=== PATIENT | male | born 1980 | race Caucasian/White ===

== ENCOUNTER 2018-01-31 22:26 | Emergency (ER) | payer OTHER ==
[~2018-01-31] VITALS: Ht 182.8 cm; Wt 142.9 kg
[~2018-01-31 22:26] MED LIST: ALLEGRA-D 12 HO1 TER PO; AMOXICILLIN500 M2 PO; AMOXICILLIN500 MG PO; MOTRIN800 MG PO; NKHM; PREDNICOT20 MG PO; ROBAXIN750 MG PO; TAMIFLU 75MG CA75 MG PO; TOBREX OPHTH S2.5 ML OPH; TRAMADOL HCL50 MG PO; ZITHROMAX250 MG PO; ZYRTEC10 M1 PO; ZYRTEC10 MG PO
[2018-01-31 23:29] LABS: BASO # 0.1 10*3/uL (0.0-0.1); BASO % 0.6 % (0.0-1.0); EOS # 0.4 10*3/uL (0.0-0.4); EOS % 3.1 % (1.0-4.0); HEMATOCRIT 43.2 % (42.0-52.0); HEMOGLOBIN 14.6 g/dl (14.0-18.0); LYMPH # 1.1 10*3/uL (1.3-4.4); LYMPH % 9.3 % (27.0-41.0); MEAN CELL VOLUME 86.9 fl (80.0-94.0); MEAN CORPUSCULAR HGB 29.4 pg (27.0-31.0); MEAN CORPUSCULAR HGB CONC 33.8 g/dl (33.0-37.0); MEAN PLATELET VOLUME 9.6 fl (9.6-12.3); MONO # 1.4 10*3/uL (0.1-1.0); MONO % 12.3 % (3.0-9.0); NEUT # 8.7 10*3/uL (2.3-7.9); NEUT % 73.8 % (47.0-73.0); PLATELET COUNT AUTOMATED 204 10*3/uL (130-400); RED BLOOD COUNT 4.97 10*6/uL (4.50-5.90); RED CELL DISTRI WIDTH 13.4 % (0-14.5); WHITE BLOOD COUNT 11.8 10*3/uL (4.8-10.8)
[2018-01-31 23:39] LABS: ACT PARTIAL THROMBO TIME 24.2 SECONDS (20.8-31.5); INTERNATIONAL NORM RATIO 0.9 (2.0-3.5)
[2018-01-31 23:46] LABS: ALBUMIN 3.3 gm/dl (3.1-4.5); ALKALINE PHOSPHATASE 110 U/L (45-117); BUN 9 mg/dl (7-24); CHLORIDE 105 mmol/L (98-107); CREATININE 0.93 mg/dL (0.70-1.30); LIPASE 130 U/L (73-393); POTASSIUM 3.7 mmol/L (3.5-5.1); SGOT/AST 23 IU/L (3-35); SGPT/ALT 38 U/L (12-78); SODIUM 137 mmol/L (136-145); TOTAL PROTEIN 7.2 gm/dL (6.4-8.2); TROPONIN I < 0.015 ng/ml (<0.045)
[2018-02-01] MEDS ORDERED: OMNICEF300 MG PO (01:00)
[2018-02-01] MEDS ORDERED: MEDROL DOSEPAK4 MG PO (01:00)
== END 2018-02-01 00:59 | disposition home or self-care (01) ==
LOC: ED 22:26
PROVIDERS: Nurse Practitioner Family
DX: J40 Bronchitis, not specified as acute or chronic (principal); J01.00 Acute maxillary sinusitis, unspecified; F17.200 Nicotine dependence, unspecified, uncomplicated; Z98.890 Other specified postprocedural states

== ENCOUNTER 2018-03-30 21:59 | Emergency (ER) | payer OTHER ==
[~2018-03-30] VITALS: Ht 182.8 cm; Wt 138.3 kg
[~2018-03-30 21:59] MED LIST changes: +MEDROL DOSEPAK4 MG PO; +OMNICEF300 MG PO
[2018-03-30] MEDS ORDERED: Motrin,Rufen800 MG PO (22:22)
[2018-03-30] MEDS ORDERED: CLINDAMYCIN HC300 MG PO (22:22)
== END 2018-03-30 22:28 | disposition home or self-care (01) ==
LOC: ED 21:59
DX: K04.7 Periapical abscess without sinus (principal)

== ENCOUNTER 2018-05-10 17:13 | Emergency (ER) | payer OTHER ==
[~2018-05-10] VITALS: Ht 182.8 cm; Wt 137.0 kg
[~2018-05-10 17:13] MED LIST changes: +CLINDAMYCIN HC300 MG PO; +Motrin,Rufen800 MG PO
[2018-05-10 17:36] LABS: HEMATOCRIT 44.1 % (42.0-52.0); HEMOGLOBIN 14.6 g/dl (14.0-18.0); MEAN CELL VOLUME 89.3 fl (80.0-94.0); MEAN CORPUSCULAR HGB 29.6 pg (27.0-31.0); MEAN CORPUSCULAR HGB CONC 33.1 g/dl (33.0-37.0); MEAN PLATELET VOLUME 9.8 fl (9.6-12.3); PLATELET COUNT AUTOMATED 223 10*3/uL (130-400); RED BLOOD COUNT 4.94 10*6/uL (4.50-5.90); RED CELL DISTRI WIDTH 13.6 % (0-14.5); WHITE BLOOD COUNT 12.9 10*3/uL (4.8-10.8)
[2018-05-10 17:50] LABS: ALBUMIN 3.5 gm/dl (3.1-4.5); ALKALINE PHOSPHATASE 108 U/L (45-117); BUN 12 mg/dl (7-24); CHLORIDE 108 mmol/L (98-107); CREATININE 0.93 mg/dL (0.70-1.30); LIPASE 135 U/L (73-393); POTASSIUM 4.2 mmol/L (3.5-5.1); SGOT/AST 15 IU/L (3-35); SGPT/ALT 30 U/L (12-78); SODIUM 143 mmol/L (136-145); TOTAL PROTEIN 7.2 gm/dL (6.4-8.2)
[2018-05-10 17:59] LABS: PLATELET SUFFICIENCY NORMAL (NORMAL); TOTAL CELLS COUNTED 100 #CELLS
[2018-05-10] MEDS ORDERED: ZOFRAN ODT4 MG SL (18:57)
== END 2018-05-10 19:02 | disposition home or self-care (01) ==
LOC: ED 17:13
PROVIDERS: Nurse Practitioner Family
DX: B34.9 Viral infection, unspecified (principal); R11.0 Nausea; F17.200 Nicotine dependence, unspecified, uncomplicated; Z98.890 Other specified postprocedural states

== ENCOUNTER 2018-05-27 21:46 | Emergency (ER) | payer OTHER ==
[~2018-05-27] VITALS: Ht 182.8 cm; Wt 136.1 kg
--- NOTE | ~2018-05-27 | EKG ---
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
[~2018-05-27 21:46] MED LIST changes: +ZOFRAN ODT4 MG SL
[2018-05-27 23:01] LABS: BASO # 0.1 10*3/uL (0.0-0.1); BASO % 0.6 % (0.0-1.0); EOS # 0.5 10*3/uL (0.0-0.4); EOS % 3.8 % (1.0-4.0); HEMATOCRIT 41.5 % (42.0-52.0); HEMOGLOBIN 13.8 g/dl (14.0-18.0); LYMPH # 3.2 10*3/uL (1.3-4.4); LYMPH % 25.3 % (27.0-41.0); MEAN CELL VOLUME 89.2 fl (80.0-94.0); MEAN CORPUSCULAR HGB 29.7 pg (27.0-31.0); MEAN CORPUSCULAR HGB CONC 33.3 g/dl (33.0-37.0); MEAN PLATELET VOLUME 9.8 fl (9.6-12.3); MONO # 1.5 10*3/uL (0.1-1.0); MONO % 11.4 % (3.0-9.0); NEUT # 7.4 10*3/uL (2.3-7.9); PLATELET COUNT AUTOMATED 219 10*3/uL (130-400); RED BLOOD COUNT 4.65 10*6/uL (4.50-5.90); RED CELL DISTRI WIDTH 13.8 % (0-14.5); WHITE BLOOD COUNT 12.7 10*3/uL (4.8-10.8)
[2018-05-27 23:22] LABS: ALBUMIN 3.3 gm/dl (3.1-4.5); ALKALINE PHOSPHATASE 112 U/L (45-117); BUN 10 mg/dl (7-24); CHLORIDE 108 mmol/L (98-107); CREATININE 0.81 mg/dL (0.70-1.30); POTASSIUM 3.8 mmol/L (3.5-5.1); SGOT/AST 18 IU/L (3-35); SGPT/ALT 40 U/L (12-78); SODIUM 141 mmol/L (136-145); TOTAL PROTEIN 7.1 gm/dL (6.4-8.2)
[2018-05-27 23:31] LABS: BILIRUBIN NEGATIVE (NEGATIVE); BLOOD NEGATIVE (NEGATIVE); CLARITY CLEAR (CLEAR); COLOR YELLOW (YELLOW); GLUCOSE NEGATIVE (NEGATIVE); KETONE NEGATIVE (NEGATIVE); LEUKO ESTERASE NEGATIVE (NEGATIVE); NITRITE NEGATIVE (NEGATIVE); PH 5.5 (5.0-9.0); SPECIFIC GRAVITY >= 1.030 (1.005-1.030); UROBILINOGEN 0.2 E.U./dl (0.2-1.0)
[2018-05-28] MEDS ORDERED: PREDNISONE20 M1 PO (01:47)
== END 2018-05-28 01:47 | disposition home or self-care (01) ==
LOC: ED 21:46
PROVIDERS: Nurse Practitioner
DX: G43.909 Migraine, unspecified, not intractable, without status migrainosus (principal); M31.6 Other giant cell arteritis

== ENCOUNTER 2018-07-12 21:28 | Emergency (ER) | payer OTHER ==
[~2018-07-12] VITALS: Ht 182.8 cm; Wt 167.8 kg
[~2018-07-12 21:28] MED LIST changes: +PREDNISONE20 M1 PO
[2018-07-12 23:08] LABS: HEMOGLOBIN 14.9 g/dl (14.0-18.0); MEAN CELL VOLUME 88.7 fl (80.0-94.0); MEAN CORPUSCULAR HGB CONC 33.9 g/dl (33.0-37.0); MEAN PLATELET VOLUME 9.9 fl (9.6-12.3); PLATELET COUNT AUTOMATED 227 10*3/uL (130-400); RED BLOOD COUNT 4.96 10*6/uL (4.50-5.90); RED CELL DISTRI WIDTH 13.2 % (0-14.5)
[2018-07-12 23:27] LABS: ALBUMIN 3.4 gm/dl (3.1-4.5); ALKALINE PHOSPHATASE 109 U/L (45-117); BUN 10 mg/dl (7-24); CHLORIDE 108 mmol/L (98-107); CREATININE 0.83 mg/dL (0.70-1.30); POTASSIUM 3.5 mmol/L (3.5-5.1); SGOT/AST 16 IU/L (3-35); SGPT/ALT 33 U/L (12-78); SODIUM 141 mmol/L (136-145); TOTAL PROTEIN 7.4 gm/dL (6.4-8.2)
[2018-07-12 23:30] LABS: ATYPICAL LYMPHS 1 % (0-0); BASOPHILS 1 % (0-1); TOTAL CELLS COUNTED 100 #CELLS
[2018-07-12 23:31] LABS: PLATELET SUFFICIENCY NORMAL (NORMAL); POLYCHROMASIA SLIGHT
[2018-07-13] MEDS ORDERED: DOXYCYCLINE100 M3 PO (00:02)
== END 2018-07-13 00:38 | disposition home or self-care (01) ==
LOC: ED 21:28
PROVIDERS: Nurse Practitioner
DX: J32.9 Chronic sinusitis, unspecified (principal); Z79.899 Other long term (current) drug therapy

== ENCOUNTER 2018-07-22 15:01 | Emergency (ER) | payer OTHER ==
[~2018-07-22] VITALS: Ht 182.8 cm; Wt 139.3 kg
[~2018-07-22 15:01] MED LIST changes: +DOXYCYCLINE100 M3 PO
[2018-07-22 15:21] LABS: BASO # 0.1 10*3/uL (0.0-0.1); BASO % 0.5 % (0.0-1.0); EOS # 0.4 10*3/uL (0.0-0.4); EOS % 2.8 % (1.0-4.0); HEMATOCRIT 44.3 % (42.0-52.0); HEMOGLOBIN 15.2 g/dl (14.0-18.0); LYMPH # 2.7 10*3/uL (1.3-4.4); LYMPH % 20.3 % (27.0-41.0); MEAN CELL VOLUME 87.5 fl (80.0-94.0); MEAN CORPUSCULAR HGB CONC 34.3 g/dl (33.0-37.0); MEAN PLATELET VOLUME 9.8 fl (9.6-12.3); MONO # 1.1 10*3/uL (0.1-1.0); MONO % 8.5 % (3.0-9.0); NEUT % 67.2 % (47.0-73.0); PLATELET COUNT AUTOMATED 245 10*3/uL (130-400); RED BLOOD COUNT 5.06 10*6/uL (4.50-5.90); RED CELL DISTRI WIDTH 13.1 % (0-14.5); WHITE BLOOD COUNT 13.4 10*3/uL (4.8-10.8)
[2018-07-22 15:35] LABS: ALBUMIN 3.4 gm/dl (3.1-4.5); ALKALINE PHOSPHATASE 119 U/L (45-117); BUN 11 mg/dl (7-24); CHLORIDE 108 mmol/L (98-107); POTASSIUM 3.8 mmol/L (3.5-5.1); SGOT/AST 11 IU/L (3-35); SGPT/ALT 32 U/L (12-78); SODIUM 141 mmol/L (136-145); TOTAL PROTEIN 7.6 gm/dL (6.4-8.2)
[2018-07-22 15:35] LABS: BILIRUBIN NEGATIVE (NEGATIVE); BLOOD NEGATIVE (NEGATIVE); CLARITY CLEAR (CLEAR); COLOR YELLOW (YELLOW); GLUCOSE NEGATIVE (NEGATIVE); KETONE NEGATIVE (NEGATIVE); LEUKO ESTERASE NEGATIVE (NEGATIVE); NITRITE NEGATIVE (NEGATIVE); PH 6.5 (5.0-9.0); UROBILINOGEN 0.2 E.U./dl (0.2-1.0)
[2018-07-22 15:47] LABS: BACTERIA 1+; EPITHELIAL CELLS 0-2
[2018-07-22] MEDS ORDERED: NAPROSYN500 MG PO (16:27)
[2018-07-22] MEDS ORDERED: CHLORZOXAZONE500 M2 PO (16:27)
== END 2018-07-22 16:31 | disposition home or self-care (01) ==
LOC: ED 15:01
PROVIDERS: Nurse Practitioner Family
DX: M54.5 Low back pain (principal); R03.0 Elevated blood-pressure reading, without diagnosis of hypertension; G43.909 Migraine, unspecified, not intractable, without status migrainosus; Z98.890 Other specified postprocedural states; Z79.899 Other long term (current) drug therapy

== ENCOUNTER 2019-07-05 22:06 | Emergency (ER) | payer OTHER ==
[~2019-07-05] VITALS: Ht 182.8 cm; Wt 133.4 kg
[~2019-07-05 22:06] MED LIST changes: +CHLORZOXAZONE500 M2 PO; +NAPROSYN500 MG PO
[2019-07-05] MEDS ORDERED: FLONASE ALLERG9.9 ML NAS (22:38)
[2019-07-05] MEDS ORDERED: ALLEGRA-D 24 H1 EACH PO (22:38)
== END 2019-07-05 23:32 | disposition home or self-care (01) ==
LOC: ED 22:06
DX: H92.02 Otalgia, left ear (principal); F17.200 Nicotine dependence, unspecified, uncomplicated

== ENCOUNTER 2019-08-30 21:29 | Emergency (ER) | payer OTHER ==
[~2019-08-30] VITALS: Ht 182.8 cm; Wt 144.2 kg
[~2019-08-30 21:29] MED LIST changes: +ALLEGRA-D 24 H1 EACH PO; +FLONASE ALLERG9.9 ML NAS
[2019-08-30] MEDS ORDERED: ZITHROMAX250 MG PO (23:25)
== END 2019-08-30 23:37 | disposition home or self-care (01) ==
LOC: ED 21:29
DX: J20.9 Acute bronchitis, unspecified (principal); G43.909 Migraine, unspecified, not intractable, without status migrainosus

== ENCOUNTER 2020-06-18 18:32 | Emergency (ER) | payer OTHER ==
[~2020-06-18] VITALS: Ht 182.8 cm; Wt 143.8 kg
[2020-06-18 19:09] LABS: BASO # 0.1 10*3/uL (0.0-0.1); BASO % 0.5 % (0.0-1.0); EOS # 0.5 10*3/uL (0.0-0.4); EOS % 3.6 % (1.0-4.0); HEMATOCRIT 42.9 % (42.0-52.0); LYMPH # 2.6 10*3/uL (1.3-4.4); LYMPH % 18.7 % (27.0-41.0); MEAN CELL VOLUME 87.4 fl (80.0-94.0); MEAN CORPUSCULAR HGB 28.7 pg (27.0-31.0); MEAN CORPUSCULAR HGB CONC 32.9 g/dl (33.0-37.0); MEAN PLATELET VOLUME 10.1 fl (9.6-12.3); MONO # 1.3 10*3/uL (0.1-1.0); MONO % 9.8 % (3.0-9.0); NEUT # 9.1 10*3/uL (2.3-7.9); NEUT % 66.7 % (47.0-73.0); PLATELET COUNT AUTOMATED 260 10*3/uL (130-400); RED BLOOD COUNT 4.91 10*6/uL (4.50-5.90); RED CELL DISTRI WIDTH 13.2 % (0-14.5); WHITE BLOOD COUNT 13.6 10*3/uL (4.8-10.8)
[2020-06-18 19:21] LABS: ACT PARTIAL THROMBO TIME 29.6 SECONDS (20.0-32.1); INTERNATIONAL NORM RATIO 0.9 (2.0-3.5)
[2020-06-18 19:28] LABS: ALBUMIN 3.1 gm/dl (3.1-4.5); ALKALINE PHOSPHATASE 124 U/L (45-117); BUN 8 mg/dl (7-24); CHLORIDE 108 mmol/L (98-107); LIPASE 128 U/L (73-393); POTASSIUM 4.1 mmol/L (3.5-5.1); SGOT/AST 17 IU/L (3-35); SGPT/ALT 37 U/L (12-78); SODIUM 141 mmol/L (136-145); TOTAL PROTEIN 7.3 gm/dL (6.4-8.2); TROPONIN I < 0.015 ng/ml (<0.045)
[2020-06-18 19:33] LABS: BILIRUBIN NEGATIVE; BLOOD NEGATIVE (NEGATIVE); CLARITY CLEAR (CLEAR); COLOR YELLOW (YELLOW); GLUCOSE NEGATIVE; KETONE NEGATIVE; LEUKO ESTERASE NEGATIVE (NEGATIVE); NITRITE NEGATIVE (NEGATIVE); SPECIFIC GRAVITY 1.015 (1.001-1.030); UROBILINOGEN 0.2 E.U./dl (0.0-1.0)
[2020-06-18 19:37] LABS: BACTERIA TRACE; RBC 0-2 rbc/hpf (0-2); WBC 0-2 wbc/hpf (0-5)
[2020-06-18] MEDS ORDERED: PROTONIX40 MG PO (22:02)
[2020-06-18] MEDS ORDERED: ZOFRAN4 MG PO (22:02)
== END 2020-06-18 22:12 | disposition home or self-care (01) ==
LOC: ED 18:32
PROVIDERS: Physician Assistant
DX: K76.0 Fatty (change of) liver, not elsewhere classified (principal); R03.0 Elevated blood-pressure reading, without diagnosis of hypertension; R10.13 Epigastric pain; F17.200 Nicotine dependence, unspecified, uncomplicated; Z79.899 Other long term (current) drug therapy

== ENCOUNTER 2020-07-23 20:58 | Emergency (ER) | payer OTHER ==
[~2020-07-23] VITALS: Ht 182.8 cm; Wt 139.3 kg
[~2020-07-23 20:58] MED LIST changes: +PROTONIX40 MG PO; +ZOFRAN4 MG PO
[2020-07-23 21:58] LABS: BASO # 0.1 10*3/uL (0.0-0.1); BASO % 0.6 % (0.0-1.0); EOS # 0.5 10*3/uL (0.0-0.4); EOS % 3.7 % (1.0-4.0); HEMATOCRIT 41.5 % (42.0-52.0); LYMPH # 2.2 10*3/uL (1.3-4.4); LYMPH % 17.5 % (27.0-41.0); MEAN CELL VOLUME 87.6 fl (80.0-94.0); MEAN CORPUSCULAR HGB 28.5 pg (27.0-31.0); MEAN CORPUSCULAR HGB CONC 32.5 g/dl (33.0-37.0); MEAN PLATELET VOLUME 9.7 fl (9.6-12.3); MONO # 1.4 10*3/uL (0.1-1.0); MONO % 11.2 % (3.0-9.0); NEUT # 8.4 10*3/uL (2.3-7.9); NEUT % 66.4 % (47.0-73.0); PLATELET COUNT AUTOMATED 234 10*3/uL (130-400); RED BLOOD COUNT 4.74 10*6/uL (4.50-5.90); RED CELL DISTRI WIDTH 13.4 % (0-14.5); WHITE BLOOD COUNT 12.7 10*3/uL (4.8-10.8)
[2020-07-23 22:19] LABS: ALBUMIN 3.2 gm/dl (3.1-4.5); ALKALINE PHOSPHATASE 119 U/L (45-117); BUN 10 mg/dl (7-24); CHLORIDE 108 mmol/L (98-107); CREATININE 0.82 mg/dL (0.70-1.30); LIPASE 134 U/L (73-393); POTASSIUM 3.7 mmol/L (3.5-5.1); SGOT/AST 17 IU/L (3-35); SGPT/ALT 40 U/L (12-78); SODIUM 140 mmol/L (136-145); TOTAL PROTEIN 6.9 gm/dL (6.4-8.2)
[2020-07-23] MEDS ORDERED: ZOFRAN4 MG PO (22:56)
== END 2020-07-24 00:55 | disposition home or self-care (01) ==
LOC: ED 20:58
PROVIDERS: Nurse Practitioner Family
DX: A08.4 Viral intestinal infection, unspecified (principal); Z79.899 Other long term (current) drug therapy

== ENCOUNTER 2020-07-31 20:46 | Inpatient (IN) | payer OTHER ==
[~2020-07-31] VITALS: Ht 182.8 cm; Wt 165.6 kg
[2020-07-31 20:54] VITALS: BP 190/107
[2020-07-31 21:28] VITALS: BP 190/110
[2020-07-31 22:02] LABS: HEMATOCRIT 44.2 % (42.0-52.0); MEAN CELL VOLUME 87.4 fl (80.0-94.0); MEAN CORPUSCULAR HGB 28.3 pg (27.0-31.0); MEAN CORPUSCULAR HGB CONC 32.4 g/dl (33.0-37.0); MEAN PLATELET VOLUME 10.3 fl (9.6-12.3); PLATELET COUNT AUTOMATED 286 10*3/uL (130-400); RED BLOOD COUNT 5.06 10*6/uL (4.50-5.90); RED CELL DISTRI WIDTH 13.5 % (0-14.5); WHITE BLOOD COUNT 12.5 10*3/uL (4.8-10.8)
[2020-07-31 22:15] LABS: INTERNATIONAL NORM RATIO 0.9 (2.0-3.5)
[2020-07-31 22:23] LABS: ALBUMIN 3.1 gm/dl (3.1-4.5); ALKALINE PHOSPHATASE 124 U/L (45-117); BUN 12 mg/dl (7-24); CHLORIDE 107 mmol/L (98-107); CREATININE 0.91 mg/dL (0.70-1.30); POTASSIUM 5.2 mmol/L (3.5-5.1); SGOT/AST 47 IU/L (3-35); SGPT/ALT 37 U/L (12-78); SODIUM 137 mmol/L (136-145); TOTAL PROTEIN 7.4 gm/dL (6.4-8.2)
[2020-07-31 22:28] LABS: TROPONIN I < 0.015 ng/ml (<0.045)
--- NOTE | 2020-07-31 22:31 | NUR ---
Breathing tx given. SpO2 97% on room air
[2020-07-31 22:32] LABS: ATYPICAL LYMPHS 1 % (0-0); PLATELET SUFFICIENCY NORMAL (NORMAL); TOTAL CELLS COUNTED 100 #CELLS
--- NOTE | 2020-07-31 22:59 | NUR ---
Transfer of care from Madelainemeir whitehead
--- NOTE | 2020-07-31 23:02 | NUR ---
In to see pt at this time.Pt states he is doing better after breathing.Pt has iv in right arm at this time which is clamped.Pt is alert and orientated and denines open wounds at this time.
[2020-07-31 23:04] VITALS: BP 187/95
[2020-08-01] VITALS (9 sets, daily range): BP systolic 144–180; BP diastolic 75–102
--- NOTE | 2020-08-01 00:48 | NUR ---
A 39, admitted to 5E, under the services of MICKEY Vera DO with a diagnosis of Bronchitis,hypertensive emergency. Chief complaint is Cough/Congestion. Patient arrived via bed from ER. Monitor applied. Initial assessment completed. Vital signs taken and recorded. MICKEY VERA DO notified of admission to the unit. Orders received. See assessment for past medical history, medications and allergies. Patient and/or family oriented to unit. [facility] visitation policy reviewed. Clothing/patient valuable form completed. AGNES BRIONES
--- NOTE | 2020-08-01 02:00 | NUR ---
IN TO SEE PT AND PASS MEDICATIONS. IV HYDRALAZINE GIVEN PER ORDER. WILL RECHECK BP IN AN HOUR
--- NOTE | 2020-08-01 03:00 | NUR ---
PT BP AT THIS TIME IS 170/90. PT WATCHING TV. NO DISTRESS NOTED
--- NOTE | 2020-08-01 05:35 | NUR ---
IN TO SEE PT. LISINOPRIL GIVEN. NO COMPLAINTS
[2020-08-01 06:30] LABS: BASO # 0.1 10*3/uL (0.0-0.1); BASO % 0.5 % (0.0-1.0); EOS % 0.2 % (1.0-4.0); HEMATOCRIT 44.5 % (42.0-52.0); LYMPH # 1.1 10*3/uL (1.3-4.4); LYMPH % 6.7 % (27.0-41.0); MEAN CELL VOLUME 87.6 fl (80.0-94.0); MEAN CORPUSCULAR HGB 29.1 pg (27.0-31.0); MEAN CORPUSCULAR HGB CONC 33.3 g/dl (33.0-37.0); MEAN PLATELET VOLUME 9.9 fl (9.6-12.3); MONO # 0.5 10*3/uL (0.1-1.0); MONO % 3.2 % (3.0-9.0); NEUT # 14.3 10*3/uL (2.3-7.9); NEUT % 88.6 % (47.0-73.0); PLATELET COUNT AUTOMATED 259 10*3/uL (130-400); RED BLOOD COUNT 5.08 10*6/uL (4.50-5.90); RED CELL DISTRI WIDTH 13.2 % (0-14.5); WHITE BLOOD COUNT 16.1 10*3/uL (4.8-10.8)
[2020-08-01 06:37] LABS: ACT PARTIAL THROMBO TIME 30.8 SECONDS (20.0-32.1); INTERNATIONAL NORM RATIO 0.9 (2.0-3.5)
[2020-08-01 06:43] LABS: ALBUMIN 3.4 gm/dl (3.1-4.5); BUN 10 mg/dl (7-24); CHLORIDE 106 mmol/L (98-107); CHOLESTEROL 159 mg/dL (<200); CREATININE 0.86 mg/dL (0.70-1.30); SGOT/AST 16 IU/L (3-35); SODIUM 138 mmol/L (136-145); TRIGLYCERIDES 90 mg/dl (<150); VLDL CHOLESTEROL 18 mg/dL (6-40)
[2020-08-01 06:44] LABS: ALKALINE PHOSPHATASE 127 U/L (45-117); SGPT/ALT 35 U/L (12-78); TOTAL PROTEIN 7.7 gm/dL (6.4-8.2)
[2020-08-01 06:50] LABS: FREE T4 1.09 ng/dl (0.76-1.46); HDL CHOLESTEROL 33 mg/dl (40-60); LDL CHOLESTEROL 108 mg/dL (9-159)
[2020-08-01 06:52] LABS: POTASSIUM 3.7 mmol/L (3.5-5.1)
[2020-08-01 06:56] LABS: VITAMIN D, 25-HYDROXY 18.6 ng/mL (30-100)
--- NOTE | 2020-08-01 09:52 | NUR ---
NOTIFIED REGARDING ELEVATED BP. BP NOW 180/98. NEW ORDERS RECEIVED.
--- NOTE | 2020-08-01 10:00 | NUR ---
IV LABETALOL 10MG GIVEN PER ORDER FOR ELEVATED BP. WILL RECHECK BP IN 1 HOUR PER .
--- NOTE | 2020-08-01 11:16 | NUR ---
BP NOW 150/82. WILL CONTINUE TO MONITOR. NO VOICED COMPLAINTS. CALL LIGHT WITHIN REACH.
--- NOTE | 2020-08-01 12:41 | NUR ---
Quill Worker in to talk to patient. Patient states lives at HOME with GIRLFRIEND. There are NO steps in the home. Physician: [facility]: [facility] Home health services: NONE Patient's level of ADLs: INDEPENDENT Patient has working utilities: YES DME: NONE Follow-up physician's appointment after d/c: STATES HE WILL FIND ONE AND MAKE APPOINTMENT Does patient want to access PORTAL?: NO Discharge plan PT LIVES AT HOME WITH GIRLFRIEND AND IS INDEPENDENT IN HIS CARE. DENIES HE WILL HAVE ANY NEEDS ON DISCHARGE. PLAN IS TO RETURN HOME WHEN MEDICALLY STABLE. WILL CONTINUE TO FOLLOW. STATES HE WILL HAVE A RIDE HOME.. KALEB LEMON
--- NOTE | 2020-08-01 14:00 | NUR ---
PATIENT RESTING QUIETLY IN BED. NO DISTRESS NOTED. RESPIRATIONS EASY, REGULAR ON RA. WILL CONTINUE TO MONITOR. CALL LIGHT WITHIN REACH.
--- NOTE | 2020-08-01 23:46 | NUR ---
NOTIFIED DR. SEWELL OF PATIENTS MANUAL BLOOD PRESSURE OF 162/92 AND WHAT HIS BLOOD PRESSURE HAD BEEN THROUGHOUT THE DAY AND WHAT THEY HAD GIVEN HIM. HE STATED HE WOULD TAKE A LOOK AT THE PATIENTS CHART AND WOULD SEE IF HE NEEDED TO GIVE HIM ANYTHING ELSE
[2020-08-02] VITALS (7 sets, daily range): BP systolic 152–190; BP diastolic 82–95
--- NOTE | 2020-08-02 00:45 | NUR ---
24 HR chart check completed.
--- NOTE | 2020-08-02 01:40 | NUR ---
NOTIFIED DR. PERRY OF PATIENTS BLOOD PRESSURE BEING 178/88 MANUALLY AND THAT PATIENT WAS SLEEPING ON HIS ARM. NOTIFIED HIM THAT HIS HEART RATE WELL. HE STATED TO RECHECK HIS BLOOD PRESSURE IN A ANOTHER HALF HOUR
--- NOTE | 2020-08-02 02:22 | NUR ---
NOTIFIED DR. PERRY OF PATIENTS BLOOD PRESSURE BEING 160/82 AFTER SWITCHING OUT PATIENTS BLOOD PRESSURE CUFF. HE STATED HE WOULD PUT IN FOR PATIENT TO HAVE ANOTHER 10MG OF HYDRALAZINE
--- NOTE | 2020-08-02 04:00 | NUR ---
NOTIFIED DR. PERRY OF PATIENTS BLOOD PRESSURE BEING 158/82 MANUALLY AT THIS TIME. NO NEW ORDERS RECIEVED
--- NOTE | 2020-08-02 11:32 | NUR ---
PT CONTINUES TO DECLINE NEEDS AT HOME. WILL CONTINUE TO FOLLOW.
[2020-08-02] MEDS ORDERED: PREDNISONE10 MG PO (11:53)
[2020-08-02] MEDS ORDERED: ZITHROMAX TRI-500 M1 PO (11:53)
[2020-08-02] MEDS ORDERED: LISINOPRIL20 MG PO (14:57)
[2020-08-02] MEDS ORDERED: AMLODIPINE BESYL5 MG PO (14:57)
--- NOTE | 2020-08-02 15:09 | NUR ---
NOTIFIED DR EAGLE OF PT BP 168/92.
--- NOTE | 2020-08-02 15:56 | NUR ---
Discharge instructions reviewed with patient/family. Patient receptive and verbalizes understanding. Follow-up care arranged. Written instructions given to patient/family. BEKA MCBRIDE
== END 2020-08-02 16:10 | disposition home or self-care (01) | DRG 871 ==
LOC: ED 20:46 → 5E 23:58 → EDHOLD 23:58 → 5E 08-01 00:13
PROVIDERS: Emergency Medicine; Internal Medicine; ADMIT Internal Medicine; ATTEND Internal Medicine
DX: A41.9 Sepsis, unspecified organism (principal); J18.9 Pneumonia, unspecified organism; I16.1 Hypertensive emergency; Z68.41 Body mass index [BMI] 40.0-44.9, adult; R74.01 Elevation of levels of liver transaminase levels; F12.90 Cannabis use, unspecified, uncomplicated; E87.5 Hyperkalemia; J20.9 Acute bronchitis, unspecified; I10 Essential (primary) hypertension; D72.829 Elevated white blood cell count, unspecified; E66.01 Morbid (severe) obesity due to excess calories; F17.210 Nicotine dependence, cigarettes, uncomplicated; Z83.3 Family history of diabetes mellitus

== ENCOUNTER 2020-12-30 23:40 | Inpatient (IN) | payer OTHER ==
[~2020-12-30] VITALS: Ht 182.8 cm; Wt 160.0 kg
[~2020-12-30 23:40] MED LIST changes: +AMLODIPINE BESYL5 MG PO; +LISINOPRIL20 MG PO; +PREDNISONE10 MG PO; +ZITHROMAX TRI-500 M1 PO
[2020-12-30 23:50] VITALS: BP 232/118
[2020-12-31] VITALS (16 sets, daily range): BP systolic 151–216; BP diastolic 61–110
[2020-12-31 00:06] LABS: BASO # 0.1 10*3/uL (0.0-0.1); BASO % 0.7 % (0.0-1.0); EOS # 0.4 10*3/uL (0.0-0.4); EOS % 2.6 % (1.0-4.0); HEMATOCRIT 41.7 % (42.0-52.0); LYMPH # 2.3 10*3/uL (1.3-4.4); LYMPH % 16.7 % (27.0-41.0); MEAN CORPUSCULAR HGB 28.9 pg (27.0-31.0); MEAN CORPUSCULAR HGB CONC 32.9 g/dl (33.0-37.0); MEAN PLATELET VOLUME 9.8 fl (9.6-12.3); MONO # 1.5 10*3/uL (0.1-1.0); MONO % 10.7 % (3.0-9.0); NEUT # 9.6 10*3/uL (2.3-7.9); NEUT % 68.8 % (47.0-73.0); PLATELET COUNT AUTOMATED 267 10*3/uL (130-400); RED BLOOD COUNT 4.74 10*6/uL (4.50-5.90); RED CELL DISTRI WIDTH 13.4 % (0-14.5)
[2020-12-31 00:19] LABS: BUN 9 mg/dl (7-24); CHLORIDE 107 mmol/L (98-107); CREATININE 0.97 mg/dL (0.70-1.30); POTASSIUM 3.8 mmol/L (3.5-5.1); SODIUM 141 mmol/L (136-145)
[2020-12-31 05:51] LABS: ALBUMIN 3.5 gm/dl (3.1-4.5); ALKALINE PHOSPHATASE 152 U/L (45-117); BUN 9 mg/dl (7-24); CHLORIDE 105 mmol/L (98-107); CREATININE 0.99 mg/dL (0.70-1.30); FREE T4 1.06 ng/dl (0.76-1.46); POTASSIUM 3.3 mmol/L (3.5-5.1); SGOT/AST 18 IU/L (3-35); SGPT/ALT 58 U/L (12-78); SODIUM 139 mmol/L (136-145); TOTAL PROTEIN 7.8 gm/dL (6.4-8.2)
[2020-12-31 06:12] LABS: BASO # 0.1 10*3/uL (0.0-0.1); BASO % 0.7 % (0.0-1.0); EOS # 0.3 10*3/uL (0.0-0.4); EOS % 2.6 % (1.0-4.0); HEMATOCRIT 44.5 % (42.0-52.0); LYMPH # 2.4 10*3/uL (1.3-4.4); LYMPH % 18.6 % (27.0-41.0); MEAN CELL VOLUME 86.4 fl (80.0-94.0); MEAN CORPUSCULAR HGB 29.1 pg (27.0-31.0); MEAN CORPUSCULAR HGB CONC 33.7 g/dl (33.0-37.0); MEAN PLATELET VOLUME 10.4 fl (9.6-12.3); MONO # 1.4 10*3/uL (0.1-1.0); MONO % 10.9 % (3.0-9.0); NEUT # 8.6 10*3/uL (2.3-7.9); NEUT % 66.5 % (47.0-73.0); PLATELET COUNT AUTOMATED 304 10*3/uL (130-400); RED BLOOD COUNT 5.15 10*6/uL (4.50-5.90); RED CELL DISTRI WIDTH 13.3 % (0-14.5); WHITE BLOOD COUNT 12.9 10*3/uL (4.8-10.8)
[2021-01-01] VITALS: BP 180/92
[2021-01-01 03:45] VITALS: BP 174/91
[2021-01-01 07:45] VITALS: BP 190/110
[2021-01-01] MEDS ORDERED: DOXYCYCLINE MO100 M1 PO (09:24)
[2021-01-01] MEDS ORDERED: AMLODIPINE BESYL5 MG PO (09:24)
[2021-01-01] MEDS ORDERED: Zestril,Prinivi40 MG PO (09:24)
[2021-01-01] MEDS ORDERED: HYDR12.5C PO (09:24)
[2021-01-01 12:02] VITALS: BP 190/120
[2021-01-01 13:32] VITALS: BP 144/90
== END 2021-01-01 13:42 | disposition home or self-care (01) | DRG 871 ==
LOC: ED 23:40 → EDHOLD 12-31 01:21 → 5E 12-31 01:21
PROVIDERS: Internal Medicine; ADMIT Internal Medicine; ATTEND Internal Medicine
DX: A41.9 Sepsis, unspecified organism (principal); I50.31 Acute diastolic (congestive) heart failure; L03.115 Cellulitis of right lower limb; I16.1 Hypertensive emergency; L03.116 Cellulitis of left lower limb; D64.9 Anemia, unspecified; R73.9 Hyperglycemia, unspecified; E66.9 Obesity, unspecified; F12.90 Cannabis use, unspecified, uncomplicated; F17.210 Nicotine dependence, cigarettes, uncomplicated; Z82.3 Family history of stroke; Z68.42 Body mass index [BMI] 45.0-49.9, adult

== ENCOUNTER 2021-08-14 21:57 | Emergency (ER) | payer OTHER ==
[~2021-08-14] VITALS: Ht 182.8 cm; Wt 142.4 kg
[~2021-08-14 21:57] MED LIST changes: +DOXYCYCLINE MO100 M1 PO; +HYDR12.5C PO; +Zestril,Prinivi40 MG PO
[2021-08-14 22:30] LABS: BASO # 0.1 10*3/uL (0.0-0.1); BASO % 0.6 % (0.0-1.0); EOS # 0.4 10*3/uL (0.0-0.4); EOS % 3.4 % (1.0-4.0); HEMATOCRIT 39.5 % (42.0-52.0); LYMPH # 2.5 10*3/uL (1.3-4.4); LYMPH % 19.8 % (27.0-41.0); MEAN CELL VOLUME 88.8 fl (80.0-94.0); MEAN CORPUSCULAR HGB 29.7 pg (27.0-31.0); MEAN CORPUSCULAR HGB CONC 33.4 g/dl (33.0-37.0); MEAN PLATELET VOLUME 9.4 fl (9.6-12.3); MONO # 1.4 10*3/uL (0.1-1.0); MONO % 11.1 % (3.0-9.0); NEUT # 8.2 10*3/uL (2.3-7.9); NEUT % 64.6 % (47.0-73.0); PLATELET COUNT AUTOMATED 236 10*3/uL (130-400); RED BLOOD COUNT 4.45 10*6/uL (4.50-5.90); RED CELL DISTRI WIDTH 13.2 % (0-14.5); WHITE BLOOD COUNT 12.7 10*3/uL (4.8-10.8)
[2021-08-14 22:48] LABS: ALKALINE PHOSPHATASE 109 U/L (45-117); BUN 7 mg/dl (7-24); CHLORIDE 107 mmol/L (98-107); CREATININE 0.76 mg/dL (0.70-1.30); POTASSIUM 3.6 mmol/L (3.5-5.1); SGOT/AST 21 IU/L (3-35); SGPT/ALT 40 U/L (12-78); SODIUM 140 mmol/L (136-145); TOTAL PROTEIN 6.5 gm/dL (6.4-8.2); TROPONIN I 0.024 ng/ml (<0.045)
== END 2021-08-15 00:31 | disposition home or self-care (01) ==
LOC: ED 21:57
PROVIDERS: Emergency Medicine
DX: G43.909 Migraine, unspecified, not intractable, without status migrainosus (principal); Z20.822 Contact with and (suspected) exposure to COVID-19; J10.1 Influenza due to other identified influenza virus with other respiratory manifestations; F17.200 Nicotine dependence, unspecified, uncomplicated

== ENCOUNTER 2022-07-01 19:35 | Emergency (ER) | payer OTHER ==
[~2022-07-01] VITALS: Ht 182.8 cm; Wt 144.2 kg
[2022-07-01] MEDS ORDERED: ZITHROMAX250 MG PO (22:24)
== END 2022-07-01 22:33 | disposition home or self-care (01) ==
LOC: ED 19:35
DX: U07.1 COVID-19 (principal); J01.00 Acute maxillary sinusitis, unspecified; H92.03 Otalgia, bilateral; F17.200 Nicotine dependence, unspecified, uncomplicated; Z98.890 Other specified postprocedural states

== ENCOUNTER 2022-10-08 05:30 | Emergency (ER) | payer OTHER ==
[~2022-10-08] VITALS: Wt 150.2 kg
[2022-10-08 06:05] LABS: MEAN CELL VOLUME 88.1 fl (80.0-94.0); MEAN CORPUSCULAR HGB 30.1 pg (27.0-31.0); MEAN CORPUSCULAR HGB CONC 34.1 g/dl (33.0-37.0); MEAN PLATELET VOLUME 10.2 fl (9.6-12.3); PLATELET COUNT AUTOMATED 319 10*3/uL (130-400); RED BLOOD COUNT 5.79 10*6/uL (4.50-5.90); RED CELL DISTRI WIDTH 12.8 % (0-14.5); WHITE BLOOD COUNT 34.8 10*3/uL (4.8-10.8)
[2022-10-08 06:09] LABS: MANUAL DIFF REFLEX YES
[2022-10-08 06:30] LABS: TOTAL CELLS COUNTED 100 #CELLS
[2022-10-08 06:31] LABS: PLATELET SUFFICIENCY NORMAL (NORMAL)
[2022-10-08 06:36] LABS: ALKALINE PHOSPHATASE 143 U/L (46-116); BUN 16 mg/dl (9-23); CHLORIDE 102 mmol/L (98-107); CREATININE 1.24 mg/dL (0.70-1.30); POTASSIUM 3.9 mmol/L (3.4-5.1); SGPT/ALT 13 U/L (10-49); SODIUM 138 mmol/L (136-145); TOTAL PROTEIN 7.4 gm/dL (6.0-8.0)
[2022-10-08 06:39] LABS: BILIRUBIN Negative (Negative); BLOOD 3+ (Negative); CLARITY Cloudy (Clear); COLOR Yellow (Yellow); GLUCOSE Negative (Negative); KETONE Trace (Negative); LEUKO ESTERASE Trace (Negative); NITRITE Negative (Negative); PH 5.5 (4.5-8.0)
[2022-10-08 06:45] LABS: ETHYL ALCOHOL < 3.0 mg/dl (<3)
[2022-10-08 07:02] LABS: URINE AMPHETAMINES Negative (1000ng/ml); URINE BARBITURATES Negative (200ng/ml); URINE BENZODIAZEPINES Negative (200ng/ml); URINE CANNABINOIDS (THC) Negative (50ng/ml); URINE COCAINE Negative (300ng/ml); URINE METHADONE Negative (300ng/ml); URINE OPIATES Negative (300ng/ml); URINE PHENCYCLIDINE Negative (25ng/ml)
[2022-10-08 07:21] LABS: BACTERIA 1+; CALCIUM OXALATE CRYSTALS 1+; RBC TNTC rbc/hpf (0-2)
== END 2022-10-08 10:22 | disposition short-term general hospital (02) ==
LOC: ED 05:30
PROVIDERS: Internal Medicine
DX: I61.9 Nontraumatic intracerebral hemorrhage, unspecified (principal); Z98.890 Other specified postprocedural states; F17.200 Nicotine dependence, unspecified, uncomplicated; F12.90 Cannabis use, unspecified, uncomplicated; F10.90 Alcohol use, unspecified, uncomplicated; Z20.822 Contact with and (suspected) exposure to COVID-19; Z79.899 Other long term (current) drug therapy